=== PATIENT | female | born 1985 ===

== ENCOUNTER 2019-11-12 08:00 | Day surgery (SDC) | payer OTHER ==
[~2019-11-12 08:00] MED LIST: PRILOSEC PO; SINGULAIR10 MG PO
[2019-11-12] MEDS ORDERED: IBU800 MG PO (14:51)
== END 2019-11-12 17:10 | disposition home or self-care (01) ==
LOC: CIR.AMB 08:00
PROVIDERS: ATTEND Obstetrics & Gynecology Gynecology
DX: Z30.2 Encounter for sterilization (principal)